=== PATIENT | male | born 1980 | race Two or more races ===

== ENCOUNTER 2018-08-05 01:25 | Emergency (ER) | payer SELFPAY ==
[~2018-08-05] VITALS: Ht 172.7 cm; Wt 68.0 kg
[2018-08-05 05:49] VITALS: BP 112/66
== END 2018-08-05 05:55 | disposition home or self-care (01) ==
LOC: ER 01:25 → EDBD 01:25 → ER 05:55
DX: F10.129 Alcohol abuse with intoxication, unspecified (principal); Y90.9 Presence of alcohol in blood, level not specified
CPT/HCPCS: 99283; Z7610